=== PATIENT | female | born 1955 | race Caucasian/White ===

== ENCOUNTER → 2017-12-10 12:36 | Outpatient (CLI) | payer OTHER ==
[2016-05-22 10:03] VITALS: BMI 17.4
[~2017-12-10 12:36] MED LIST: AMBIEN10 MG PO; FOLIC ACID1 MG PO; HYDROCODONE-APA1 TAB PO; METHOTREXATE2.5 MG PO; PREDNISONE5 MG PO
[2017-12-10 14:10] LABS: BASOPHILS 0.1 % (0-2); EOSINOPHILS 3.7 % (0-7); HEMATOCRIT 24.3 % (36.0-48.0); IMMATURE GRANULOCYTES 0.4 % (0-5); LYMPHOCYTES 18.4 % (15-50); MCH 29.6 pg (26.0-34.0); MCV 98.4 fL (80.0-100.0); MEAN PLATELET VOLUME 8.3 fL (7.4-10.4); MONOCYTES 11.5 % (2-11); NEUTROPHILS 65.9 % (40-80); RBC 2.47 10x6/uL (4.00-5.40); RDW 18.8 % (11.5-14.5); WBC 7.1 10x3/uL (4.8-10.8)
[2017-12-10 14:42] LABS: HEMOGLOBIN 7.3 g/dL (12-16); PLATELET COUNT 482 10x3/uL (130-400)
[2017-12-10 14:48] LABS: CREATININE - SERUM 0.4 mg/dL (0.6-1.3); VANCOMYCIN - TROUGH 9.1 ug/mL (10.0-20.0)
== END | disposition home or self-care (01) ==
LOC: D.LAB 12:36
PROVIDERS: Pediatrics
DX: M18.0 Bilateral primary osteoarthritis of first carpometacarpal joints (principal); T84.52XA Infection and inflammatory reaction due to internal left hip prosthesis, initial encounter

== ENCOUNTER → 2017-12-17 12:29 | Outpatient (CLI) | payer OTHER ==
[2016-05-22 10:03] VITALS: BMI 17.4
[2017-12-17 12:55] LABS: CREATININE - SERUM 0.8 mg/dL (0.6-1.3); VANCOMYCIN - TROUGH 13.8 ug/mL (10.0-20.0)
[2017-12-17 12:57] LABS: BASOPHILS 0.2 % (0-2); EOSINOPHILS 3.1 % (0-7); HEMATOCRIT 31.2 % (36.0-48.0); HEMOGLOBIN 9.6 g/dL (12-16); IMMATURE GRANULOCYTES 0.2 % (0-5); MCH 30.3 pg (26.0-34.0); MCHC 30.8 g/dL (31.0-37.0); MCV 98.4 fL (80.0-100.0); MEAN PLATELET VOLUME 9.1 fL (7.4-10.4); MONOCYTES 10.6 % (2-11); NEUTROPHILS 70.9 % (40-80); RBC 3.17 10x6/uL (4.00-5.40); RDW 17.1 % (11.5-14.5); WBC 5.9 10x3/uL (4.8-10.8)
[2017-12-17 13:01] LABS: PLATELET COUNT 293 10x3/uL (130-400)
== END | disposition home or self-care (01) ==
LOC: D.LABREF 12:29
PROVIDERS: Orthopaedic Surgery
DX: T84.52XA Infection and inflammatory reaction due to internal left hip prosthesis, initial encounter (principal)

== ENCOUNTER → 2017-12-23 12:08 | Outpatient (CLI) | payer OTHER ==
[2016-05-22 10:03] VITALS: BMI 17.4
[2017-12-23 12:50] LABS: BASOPHILS 0.3 % (0-2); EOSINOPHILS 5.3 % (0-7); HEMATOCRIT 31.6 % (36.0-48.0); HEMOGLOBIN 9.6 g/dL (12-16); LYMPHOCYTES 23.5 % (15-50); MCH 29.4 pg (26.0-34.0); MCHC 30.4 g/dL (31.0-37.0); MCV 96.9 fL (80.0-100.0); MEAN PLATELET VOLUME 9.2 fL (7.4-10.4); MONOCYTES 12.8 % (2-11); NEUTROPHILS 58.1 % (40-80); PLATELET COUNT 296 10x3/uL (130-400); RBC 3.26 10x6/uL (4.00-5.40); RDW 15.4 % (11.5-14.5)
[2017-12-23 13:19] LABS: CREATININE - SERUM 0.5 mg/dL (0.6-1.3)
== END | disposition home or self-care (01) ==
LOC: D.LABREF 12:08
PROVIDERS: Pediatrics
DX: T84.52XA Infection and inflammatory reaction due to internal left hip prosthesis, initial encounter (principal)

== ENCOUNTER → 2017-12-30 17:55 | Outpatient (CLI) | payer OTHER ==
[2016-05-22 10:03] VITALS: BMI 17.4
[2017-12-30 18:10] LABS: BASOPHILS 0.2 % (0-2); EOSINOPHILS 6.6 % (0-7); HEMATOCRIT 31.9 % (36.0-48.0); HEMOGLOBIN 9.5 g/dL (12-16); IMMATURE GRANULOCYTES 0.2 % (0-5); LYMPHOCYTES 20.3 % (15-50); MCH 28.5 pg (26.0-34.0); MCHC 29.8 g/dL (31.0-37.0); MCV 95.8 fL (80.0-100.0); MEAN PLATELET VOLUME 9.3 fL (7.4-10.4); MONOCYTES 11.1 % (2-11); NEUTROPHILS 61.6 % (40-80); PLATELET COUNT 291 10x3/uL (130-400); RBC 3.33 10x6/uL (4.00-5.40); RDW 14.9 % (11.5-14.5); WBC 4.7 10x3/uL (4.8-10.8)
[2017-12-30 19:25] LABS: CREATININE - SERUM 0.6 mg/dL (0.6-1.3); VANCOMYCIN - TROUGH 14.9 ug/mL (10.0-20.0)
== END | disposition home or self-care (01) ==
LOC: D.LABREF 17:55
PROVIDERS: Pediatrics
DX: T84.52XA Infection and inflammatory reaction due to internal left hip prosthesis, initial encounter (principal); I48.91 Unspecified atrial fibrillation; I42.1 Obstructive hypertrophic cardiomyopathy; M16.11 Unilateral primary osteoarthritis, right hip

== ENCOUNTER → 2018-01-07 15:59 | Outpatient (CLI) | payer OTHER ==
[2016-05-22 10:03] VITALS: BMI 17.4
[2018-01-07 16:35] LABS: BASOPHILS 0.3 % (0-2); EOSINOPHILS 4.2 % (0-7); HEMATOCRIT 34.8 % (36.0-48.0); HEMOGLOBIN 10.6 g/dL (12-16); IMMATURE GRANULOCYTES 0.1 % (0-5); LYMPHOCYTES 18.9 % (15-50); MCH 28.5 pg (26.0-34.0); MCHC 30.5 g/dL (31.0-37.0); MCV 93.5 fL (80.0-100.0); MEAN PLATELET VOLUME 9.6 fL (7.4-10.4); MONOCYTES 12.5 % (2-11); PLATELET COUNT 253 10x3/uL (130-400); RBC 3.72 10x6/uL (4.00-5.40); RDW 14.7 % (11.5-14.5); WBC 7.5 10x3/uL (4.8-10.8)
[2018-01-07 16:57] LABS: CREATININE - SERUM 0.6 mg/dL (0.6-1.3); VANCOMYCIN - TROUGH 19.6 ug/mL (10.0-20.0)
== END | disposition home or self-care (01) ==
LOC: D.LABREF 15:59
PROVIDERS: Pediatrics
DX: T84.52XA Infection and inflammatory reaction due to internal left hip prosthesis, initial encounter (principal)

== ENCOUNTER 2019-01-01 08:00 | Outpatient (CLI) | payer OTHER ==
[2016-05-22 10:03] VITALS: BMI 17.4
== END 2019-01-01 08:30 | disposition home or self-care (01) ==
LOC: D.MAMMO 08:00
PROVIDERS: ATTEND Emergency Medicine
DX: Z12.31 Encounter for screening mammogram for malignant neoplasm of breast (principal)